=== PATIENT | female | born 1930 | race Caucasian/White ===

== ENCOUNTER → 2016-10-31 | Outpatient (CLI) | payer BC ==
[2014-02-26 15:46] VITALS: BP 128/52
[~2016-10-31] MED LIST: ASCO10002 PO; ASPI-482 PO; CALC-98 PO; CETI10TA22 PO; FLAX1CAP PO; Hydrocodone/Acetaminophen PO; LEVO112T4 PO; MULT-246 PO; VITA400C37 PO
--- NOTE | 2016-10-31 15:52 | KCIC ---
EXAM: Chest one view. HISTORY: Cough. COMPARISON: None available. FINDINGS: A frontal view of the chest is obtained. There are interstitial opacities with a perihilar predominance on the left greater than right. Additional lesser opacities are seen in both bases. The hemidiaphragms are mildly flattened. There is no pneumothorax or pleural effusion. The heart is mildly enlarged. There are atherosclerotic calcifications of the aorta. 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 IMPRESSION: 1. Bilateral perihilar interstitial opacities may indicate scarring or interstitial lung disease or chronic or atypical pneumonia if acute. Comparison with older studies is recommended to assess chronicity. 2. Hyperinflation suggests a component of chronic obstructive pulmonary disease. 3. Mild cardiomegaly. Electronically signed by: Edgar Rod MD (10/31/2016 3:49 PM) [facility]
== END | disposition home or self-care (01) ==
LOC: KCIC 12:01
PROVIDERS: ATTEND Family Medicine
DX: R91.8 Other nonspecific abnormal finding of lung field (principal); I51.7 Cardiomegaly; R05 Cough; R06.02 Shortness of breath; Z87.891 Personal history of nicotine dependence
CPT/HCPCS: 71010

== ENCOUNTER → 2016-11-26 | Outpatient (CLI) | payer BC ==
[2014-02-26 15:46] VITALS: BP 128/52
--- NOTE | 2016-11-26 12:27 | KCIC ---
Indication: Cough, interstitial lung disease. Cough is productive and present for about a month. Technique: Axial images and coronal and sagittal reformatted images are provided. In addition to routine imaging high resolution inspiratory imaging was performed. Comparison is a chest radiograph from October 31, 2016. One or more of the following individualized dose reduction techniques were utilized for this examination: 1. Automated exposure control 2. Adjustment of the mA and/or kV according to patient size 3. Use of iterative reconstruction technique Findings: There is lingular opacity which is mostly in a bronchovascular distribution. There is bronchial wall thickening and bronchiectasis noted in the lingula as well. Left lower lobe bronchial wall thickening is mild. Calcified granuloma is noted on the right. There is no worrisome pulmonary nodule. Minimal opacity is noted in the left lower lobe bronchus. There is no pleural effusion. There is no worrisome pulmonary nodule. There is atheromatous disease in the thoracic aorta. There are coronary artery calcifications. The heart is not enlarged. There is no definite hilar or mediastinal adenopathy on this noncontrast study. Subcentimeter right thyroid nodule is noted. Left renal cyst measures 2.8 cm in size. Subcentimeter probable cyst in the right kidney is noted as well. There are degenerative changes in the spine. There are compression fractures, appear to be chronic, resulting in increased kyphosis. Correlate with any symptoms. IMPRESSION: 1. Lingular bronchiectasis. Lingular and lower lobe bronchial wall thickening. Presence of bronchiectasis suggests there is a chronic component. Superimposed acute bronchitis cannot be excluded. 2. Granulomatous disease. Electronically signed by: Everett Law MD (11/26/2016 12:24 PM) [facility]
== END | disposition home or self-care (01) ==
LOC: KCIC CT 10:52
PROVIDERS: ATTEND Internal Medicine Pulmonary Disease
DX: D71 Functional disorders of polymorphonuclear neutrophils (principal); R05 Cough; J84.9 Interstitial pulmonary disease, unspecified
CPT/HCPCS: 71250

== ENCOUNTER → 2017-07-05 | Outpatient (CLI) | payer BC | END | disposition home or self-care (01) | LOC: KCIC 11:10 | DX: R05 Cough (principal); M48.56XD Collapsed vertebra, not elsewhere classified, lumbar region, subsequent encounter for fracture with routine healing | CPT/HCPCS: 71046 ==

== ENCOUNTER → 2017-08-23 | Outpatient (CLI) | payer BC | END | disposition home or self-care (01) | LOC: KCIC 09:18 | DX: J42 Unspecified chronic bronchitis (principal); M48.54XA Collapsed vertebra, not elsewhere classified, thoracic region, initial encounter for fracture; Z87.01 Personal history of pneumonia (recurrent) | CPT/HCPCS: 71046 ==